=== PATIENT | male | born 1980 | race Hispanic/Latino ===

== ENCOUNTER 2019-05-30 13:01 | Inpatient (IN) | payer SELFPAY ==
[~2019-05-30] VITALS: Ht 149.9 cm; Wt 68.2 kg
[2019-05-30 15:26] LABS: HEMATOCRIT 48.3 % (39.0-50.0); HEMOGLOBIN 17.3 g/dl (14.0-18.0); IMMATURE GRANULOCYTES 0.9 % (0.0-5.0); MEAN CELL VOLUME 90.1 fL CALC (80.0-100.0); MEAN CORPUSCULAR HGB 32.3 pG CALC (26.0-32.0); MEAN CORPUSCULAR HGB CONC 35.8 g/L CALC (32.0-36.0); NEUT# 12.25 thou/uL (1.82-7.42); RED BLOOD COUNT 5.36 mill/uL (4.70-6.10); RED CELL DISTRI WIDTH 13.9 % (11.5-15.5)
[2019-05-30 15:46] LABS: ALBUMIN 3.7 g/dL (3.2-5.0); BILIRUBIN, TOTAL 3.3 mg/dL (0.0-1.4); POTASSIUM 4.1 mmol/l (3.5-5.1); TOTAL PROTEIN 7.6 g/dL (6.3-8.2)
[2019-05-30 15:53] LABS: CREATININE 3.6 mg/dL (0.7-1.3)
[2019-05-30 17:10] LABS: URINE BILIRUBIN - DIPSTICK NEGATIVE (NEGATIVE); URINE BLOOD DIPSTICK LARGE (NEGATIVE); URINE GLUCOSE - DIPSTICK NEGATIVE (NEGATIVE); URINE KETONE NEGATIVE (NEGATIVE); URINE LEUK ESTERASE NEGATIVE (NEGATIVE); URINE NITRITE - DIPSTICK NEGATIVE (Negative); URINE PH 5.5 (4.5-8.0); URINE PROTEIN - DIPSTICK 100 mg/dL (NEG-TRACE); URINE SPECIFIC GRAVITY >=1.030; URINE UROBILINOGEN - DIPSTICK 0.2 E.U./dL (0.2)
[2019-05-30 17:19] LABS: URINE COLOR DK. YELLOW
[2019-05-30 17:29] LABS: URINE FINE GRAN CAST FEW lpf; URINE MUCUS MODERATE hpf (NONE-FEW)
[2019-05-30 17:30] LABS: URINE AMORPH SEDIMENT MANY hpf (NONE-FER)
[2019-05-30 18:56] LABS: BARBITURATES NEGATIVE (NEGATIVE); COCAINE NEGATIVE (NEGATIVE); METHADONE NEGATIVE (NEGATIVE); OXCYCODONE NEGATIVE (NEGATIVE); TETRAHYDROCANNABIONOL NEGATIVE (NEGATIVE); TRICYLIC ANTIDEPRESSANTS NEGATIVE (NEGATIVE)
[2019-05-30 21:25] VITALS: BP 121/76
[2019-05-31] VITALS (7 sets, daily range): BP systolic 114–138; BP diastolic 64–78
[2019-05-31 05:40] LABS: MEAN CELL VOLUME 92.5 fL CALC (80.0-100.0); MEAN CORPUSCULAR HGB 32.6 pG CALC (26.0-32.0); MEAN CORPUSCULAR HGB CONC 35.2 g/L CALC (32.0-36.0); NEUT# 6.74 thou/uL (1.82-7.42); RED BLOOD COUNT 3.99 mill/uL (4.70-6.10); RED CELL DISTRI WIDTH 13.8 % (11.5-15.5)
[2019-05-31 05:44] LABS: HEMATOCRIT 36.9 % (39.0-50.0)
[2019-05-31 05:45] LABS: IMMATURE GRANULOCYTES 0.9 % (0.0-5.0)
[2019-05-31 05:50] LABS: POTASSIUM 3.7 mmol/l (3.5-5.1)
[2019-05-31 05:56] LABS: ALBUMIN 2.7 g/dL (3.2-5.0); CREATININE 1.6 mg/dL (0.7-1.3); TOTAL PROTEIN 5.6 g/dL (6.3-8.2)
[2019-05-31 10:20] LABS: CHOLESTEROL HDL RATIO 11.2 (<4.4 (CALC)); HDL CHOLESTEROL 23 mg/dL (>=40); MAGNESIUM 1.7 mg/dL (1.6-2.3); TOTAL CHOLESTEROL 259 mg/dl (0-199)
[2019-05-31 11:10] LABS: TOTAL TRIGLYCERIDES 1871 mg/dl (30-149); VLDL CHOLESTROL 374 mg/dl (5-56 (CALC))
[2019-06-01] VITALS (12 sets, daily range): BP systolic 114–154; BP diastolic 72–88
[2019-06-01 05:49] LABS: ALBUMIN 2.5 g/dL (3.2-5.0); ALKALINE PHOSPHATASE 94 u/l (38-126); BILIRUBIN, TOTAL 3.3 mg/dL (0.0-1.4); BUN 13 mg/dL (9-20); BUN/CREATININE RATIO 17 (12-20 (CALC)); CHLORIDE 104 mmol/l (95-108); CREATININE 0.7 mg/dL (0.7-1.3); GFR > 60 ML/MIN (>=60 (CALC)); GFR FOR AFR.AMER. > 60 ML/MIN (>=60 (CALC)); LIPASE 1175 u/l (23-300); POTASSIUM 3.6 mmol/l (3.5-5.1); SGOT/AST 107 u/l (17-59); SODIUM 132 mmol/l (137-146); TOTAL PROTEIN 5.3 g/dL (6.3-8.2)
[2019-06-01 05:52] LABS: ANION GAP 8 (6-22 (CALC)); CARBON DIOXIDE 24 mmol/l (22-30)
[2019-06-02 03:26] VITALS: BP 139/84
[2019-06-02 05:17] LABS: IMMATURE GRANULOCYTES 5.9 % (0.0-5.0); MEAN CELL VOLUME 96.6 fL CALC (80.0-100.0); MEAN CORPUSCULAR HGB 32.2 pG CALC (26.0-32.0); MEAN CORPUSCULAR HGB CONC 33.3 g/L CALC (32.0-36.0); NEUT# 3.52 thou/uL (1.82-7.42); RED BLOOD COUNT 2.92 mill/uL (4.70-6.10); RED CELL DISTRI WIDTH 13.2 % (11.5-15.5)
[2019-06-02 05:40] LABS: BUN 6 mg/dL (9-20); BUN/CREATININE RATIO 10 (12-20 (CALC)); CHLORIDE 101 mmol/l (95-108); CREATININE 0.6 mg/dL (0.7-1.3); GFR > 60 ML/MIN (>=60 (CALC)); GFR FOR AFR.AMER. > 60 ML/MIN (>=60 (CALC)); MAGNESIUM 1.8 mg/dL (1.6-2.3); POTASSIUM 3.4 mmol/l (3.5-5.1); SODIUM 133 mmol/l (137-146)
[2019-06-02 05:43] LABS: ALBUMIN 2.3 g/dL (3.2-5.0); BILIRUBIN, TOTAL 2.2 mg/dL (0.0-1.4); DIRECT BILIRUBIN 0.2 mg/dl (0.0-0.3); TOTAL PROTEIN 4.7 g/dL (6.3-8.2)
[2019-06-02 05:54] LABS: HEMATOCRIT 28.2 % (39.0-50.0); HEMOGLOBIN 9.4 g/dl (14.0-18.0)
[2019-06-02 06:07] LABS: ANION GAP 5 (6-22 (CALC)); CARBON DIOXIDE 30 mmol/l (22-30)
[2019-06-02 07:18] VITALS: BP 149/99
[2019-06-02 10:25] VITALS: BP 138/79
[2019-06-02 15:05] LABS: HEMATOCRIT 32.4 % (39.0-50.0); HEMOGLOBIN 10.7 g/dl (14.0-18.0)
[2019-06-02 15:28] VITALS: BP 144/92
[2019-06-02 19:58] VITALS: BP 169/95
[2019-06-02 23:30] VITALS: BP 165/103
[2019-06-03 01:00] VITALS: BP 147/89
[2019-06-03 05:36] LABS: HEMATOCRIT 30.5 % (39.0-50.0); MEAN CELL VOLUME 97.1 fL CALC (80.0-100.0); MEAN CORPUSCULAR HGB 31.8 pG CALC (26.0-32.0); MEAN CORPUSCULAR HGB CONC 32.8 g/L CALC (32.0-36.0); RED BLOOD COUNT 3.14 mill/uL (4.70-6.10)
[2019-06-03 05:43] VITALS: BP 141/86
[2019-06-03 05:45] LABS: ALBUMIN 2.7 g/dL (3.2-5.0); ALKALINE PHOSPHATASE 106 u/l (38-126); ANION GAP 6 (6-22 (CALC)); BILIRUBIN, TOTAL 1.4 mg/dL (0.0-1.4); BUN 8 mg/dL (9-20); BUN/CREATININE RATIO 16 (12-20 (CALC)); CARBON DIOXIDE 30 mmol/l (22-30); CHLORIDE 99 mmol/l (95-108); CREATININE 0.5 mg/dL (0.7-1.3); GFR > 60 ML/MIN (>=60 (CALC)); GFR FOR AFR.AMER. > 60 ML/MIN (>=60 (CALC)); LIPASE 456 u/l (23-300); SGOT/AST 93 u/l (17-59); SODIUM 131 mmol/l (137-146); TOTAL PROTEIN 5.6 g/dL (6.3-8.2)
[2019-06-03 05:59] LABS: POTASSIUM 4.1 mmol/l (3.5-5.1)
[2019-06-03 08:01] VITALS: BP 147/84
[2019-06-03] MEDS ORDERED: LORTAB 5/3255 MG PO (12:12)
[2019-06-03] MEDS ORDERED: LOPID600 MG PO (12:14)
[2019-06-03 16:00] VITALS: BP 153/97
== END 2019-06-03 17:50 | disposition home or self-care (01) | DRG 853 ==
LOC: ED 13:01 → ED-I 18:21 → ED 18:44 → MS2 18:45
PROVIDERS: Family Medicine; Nurse Practitioner Family; Surgery; ADMIT Internal Medicine; ATTEND Internal Medicine
PROC: 0FT44ZZ Resection of Gallbladder, Percutaneous Endoscopic Approach (ICD-10-PCS; principal; 2019-06-01)
PROC: BF001ZZ Plain Radiography of Bile Ducts using Low Osmolar Contrast (ICD-10-PCS; 2019-06-01)
DX: A41.9 Sepsis, unspecified organism (principal); K85.10 Biliary acute pancreatitis without necrosis or infection; N17.9 Acute kidney failure, unspecified; K80.00 Calculus of gallbladder with acute cholecystitis without obstruction; E83.51 Hypocalcemia; E86.0 Dehydration; E78.1 Pure hyperglyceridemia; R74.0 Nonspecific elevation of levels of transaminase and lactic acid dehydrogenase [LDH]
CPT/HCPCS: J2710; Q9967

== ENCOUNTER 2022-10-03 12:43 | Emergency (ER) | payer SELFPAY ==
[~2022-10-03] VITALS: Ht 149.9 cm; Wt 65.0 kg
[~2022-10-03 12:43] MED LIST: LOPID600 MG PO; LORTAB 5/3255 MG PO
[2022-10-03] MEDS ORDERED: NAPROXEN500 MG PO (15:16)
[2022-10-03] MEDS ORDERED: PREDNISONE10 MG PO (15:16)
[2022-10-03 15:23] VITALS: BP 145/98
== END 2022-10-03 15:41 | disposition home or self-care (01) | DRG 552 ==
LOC: ED 12:43
DX: M54.41 Lumbago with sciatica, right side (principal)